=== PATIENT | male | born 1995 | race Caucasian/White ===

== ENCOUNTER 2017-12-13 23:41 | Inpatient (IN) ==
[2017-12-13] MEDS ORDERED: ceFAZolin 2 GM Premix Inj 2 GM/50 ML PIGGYBACK IV.SIG ONE (23:45)
[2017-12-14 00:01] LABS: Baso % (Auto) 0.6 % (0.0-2.0); Eos # (Auto) 0.2 th/mm3 (0.0-0.4); Eos % (Auto) 2.7 % (0.0-4.0); Hematocrit 38.6 % (39.0-51.0); Hemoglobin 13.5 gm/dL (13.0-17.0); Lymph # (Auto) 2.9 th/mm3 (1.0-4.8); Lymph % (Auto) 47.5 % (9.0-44.0); Mean Corpuscular Hemoglobin 31.8 pg (27.0-34.0); Mean Corpuscular Volume 90.9 fL (80.0-100.0); Mean Platelet Volume 7.4 fL (7.0-11.0); Mono # (Auto) 0.6 th/mm3 (0.0-0.9); Mono % (Auto) 9.5 % (0.0-8.0); Neut # (Auto) 2.5 th/mm3 (1.8-7.7); Neut % (Auto) 39.7 % (16.0-70.0); Platelet Count 282 th/mm3 (150-450); Red Blood Count 4.25 mil/mm3 (4.50-5.90); Red Cell Distribution Width 13.2 % (11.6-17.2); White Blood Count 6.2 th/mm3 (4.0-11.0)
[2017-12-14 00:14] LABS: Activated Partial Thrombo Time 28.4 sec (24.3-30.1); Prothrombin Time 10.4 sec (9.8-11.6)
[2017-12-14] MEDS ORDERED: HYDROmorphone PF Inj 2 MG/ML Vial IV.PUSH PRN ×2 (00:24→00:27)
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
[2017-12-14] MEDS ORDERED: Aspirin 325 MG Tablet PO ONE (00:48)
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
[2017-12-14] MEDS ORDERED: Bisacodyl 10 MG Supp RECTAL PRN (01:07)
[2017-12-14] MEDS ORDERED: Chlorhexidine Gluconate 2% 1 Pack (2 Cloths) TOPICAL SCH ×2 (04:00)
[2017-12-14] MEDS ORDERED: Chlorhexidine Gluconate 2% 1 Pack (2 Cloths) TOPICAL PRN ×2 (04:00)
[2017-12-14 08:29] LABS: Baso % (Auto) 0.3 % (0.0-2.0); Eos # (Auto) 0.2 th/mm3 (0.0-0.4); Eos % (Auto) 3.5 % (0.0-4.0); Hematocrit 37.9 % (39.0-51.0); Hemoglobin 13.1 gm/dL (13.0-17.0); Lymph # (Auto) 2.5 th/mm3 (1.0-4.8); Lymph % (Auto) 45.4 % (9.0-44.0); Mean Corpuscular HGB Conc 34.6 % (32.0-36.0); Mean Corpuscular Hemoglobin 31.6 pg (27.0-34.0); Mean Corpuscular Volume 91.5 fL (80.0-100.0); Mean Platelet Volume 7.7 fL (7.0-11.0); Mono # (Auto) 0.5 th/mm3 (0.0-0.9); Mono % (Auto) 9.6 % (0.0-8.0); Neut # (Auto) 2.2 th/mm3 (1.8-7.7); Neut % (Auto) 41.2 % (16.0-70.0); Platelet Count 255 th/mm3 (150-450); Red Blood Count 4.14 mil/mm3 (4.50-5.90); Red Cell Distribution Width 13.5 % (11.6-17.2); White Blood Count 5.4 th/mm3 (4.0-11.0)
[2017-12-14 08:54] LABS: Calcium 8.3 mg/dL (8.5-10.1); Carbon Dioxide 29.9 meq/L (21.0-32.0); Potassium 3.5 meq/L (3.5-5.1)
[2017-12-14] MEDS ORDERED: Aspirin 325 MG Tablet PO SCH (09:00)
[2017-12-14] MEDS ORDERED: Pantoprazole Inj 40 MG Vial IV.PUSH ONE (09:00)
[2017-12-14] MEDS ORDERED: Docusate Sodium 100 MG Capsule PO SCH (09:00)
[2017-12-14] MEDS ORDERED: Senna/Docusate Sodium 8.6/50 MG Tablet PO SCH (09:00)
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
[2017-12-14 13:26] LABS: Amphetamine Screen,Urine Pos (Neg); Barbiturate Screen,Urine Neg (Neg); Cannabinoid Screen,Urine Pos (Neg); Cocaine Screen,Urine Pos (Neg)
[2017-12-14 13:30] LABS: Opiate Screen,Urine Pos (Neg)
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
--- NOTE | 2017-12-14 15:21 | OTSOAPIP ---
TIME SESSION COMPLETED: 1510 RECEIVED OCCUPATIONAL THERAPY ORDER FOR LEFT ARM SLING. WENT TO FLOOR AND FEEDER/FOLDER INFORMED THERAPIST ORDER WAS PLACED BY [facility] AND THEY ARE PREPARING TO DISCHARGE PATIENT, THEY ONLY NEEDED SLING BY ORTHOTECH, NOT OCCUPATIONAL THERAPY. ORDER WAS CANCELLED. INTERDISCIPLINARY COMMUNICATION: REVIEWED ELECTRONIC MEDICAL RECORD Therapist: Mikki Romero OTR/L Signature on file
== END 2017-12-14 16:20 | disposition home or self-care (01) ==
LOC: NEPI 23:41 → NEDA 23:41 → OBSVTOIN 12-14 00:20 → N03 12-14 04:54
PROVIDERS: ADMIT Surgery Trauma Surgery; ATTEND Surgery Trauma Surgery